=== PATIENT | male | born 2000 | race African-American/Black ===

== ENCOUNTER 2021-02-06 19:14 | Emergency (ER) | payer SELFPAY ==
[~2021-02-06] VITALS: Ht 172.7 cm; Wt 77.1 kg
[2021-02-06 20:28] VITALS: BP 108/61
[2021-02-06] MEDS ORDERED: AZIT1PAC PO (20:49)
[2021-02-06] MEDS ORDERED: KETOROLAC TROMETHAMINE 15 MG/ML VIAL ONE (20:53)
[2021-02-06] MEDS ORDERED: KETOROLAC TROMETHAMINE INJ 30 MG/ML VIAL IM ONE (21:00)
== END 2021-02-06 21:31 | disposition home or self-care (01) ==
LOC: ER 19:14
DX: J02.9 Acute pharyngitis, unspecified (principal); F12.90 Cannabis use, unspecified, uncomplicated; F17.210 Nicotine dependence, cigarettes, uncomplicated
CPT/HCPCS: 96372; 99283; 99406; J1885